=== PATIENT | female | born 1950 | race Caucasian/White ===

== ENCOUNTER → 2016-09-13 | Outpatient (CLI) | payer MEDICARE, OTHER ==
[~2016-09-13] MED LIST: ADVAIR 2501 DISK W/D PO; ADVIL200 M1 PO; ALBUTEROL17 GM NEB; ALPRAZOLAM PO; APRESOLINE PO; ASPIRIN PO; CARVEDILOL12.5 MG PO; CENTRUM SILVER PO; FISH OIL 1,0001 CA2 PO; GLUCOSAMINE CH1 EACH PO; HYDROCODON-ACE1 EAC4 PO; IPRATROPIUM0.2 MG/ML NEB; LASIX PO; LOTREL 5/20 MG1 CAP PO; LOTREL PO; MIRALAX255 GM PO; OMEPRAZOLE40 MG PO; PAXIL PO; PRILOSEC PO; PRINIVIL40 MG PO; SULAR17 MG PO; TOPROL XL PO; VOLTAREN75 MG PO
--- NOTE | ~2016-09-13 | MY11 ---
[facility] A Service of [facility] RADIOLOGY TEXT RESULTS PATIENT: MARIELLA LOPEZ LOCATION: [facility] : 52 UNIT #: [id number] AGE: [address]: Gamal Bustos MD SEX: F ORDER DR: [id number] [address] [address] [id number] O MR#: [id number] Acc #: [id number] NAME: MARIELLA LOPEZ : 1950 SEX: F STUDY DATE/TIME: 09/13/2016 14:51 UNIT: [facility] ROOM: STUDY DESCRIPTION: MY Mammogram Screening Dig Alirio Attending Physician: Gamal Bustos M.D. Ordering Physician: Gamal Bustos M.D. Primary Care Physician: Gamal Bustos M.D. MEDICAL IMAGING REPORT This report is preliminary unless electronic signature is present EXAM Bilateral Digital Screening Mammogram with CAD INDICATION Breast cancer screening. 66-year-old asymptomatic female. No personal or family history of breast cancer. COMPARISON 03/04/2014 FINDINGS There are scattered fibroglandular tissues. No suspicious findings are present. IMPRESSION No mammographic evidence of malignancy. Annual screening mammography and clinical breast exam are recommended. A result letter will be sent to the patient. Patients over the age of 40 are entered into a reminder system with target due date for the next mammogram. BIRADS: 1 Negative [facility] A Service of [facility] RADIOLOGY TEXT RESULTS PATIENT: MARIELLA LOPEZ LOCATION: [facility] : 52 UNIT #: [id number] AGE: [address]: Gamal Bustos MD SEX: F ORDER DR: Dictated by... Audi Kern M.D. THIS IS AN ELECTRONICALLY VERIFIED REPORT Audi Kern M.D. at 09/16/2016 2:54 PM BLM/to TD: 09/13/2016 17:42 JOB #: [id number] MEDICAL IMAGING REPORT Page 1 of 1 COPY
== END | disposition home or self-care (01) ==
LOC: CWCC 14:47
DX: Z12.31 Encounter for screening mammogram for malignant neoplasm of breast (principal)
CPT/HCPCS: G0202